=== PATIENT | female | born 1935 | race Caucasian/White ===

== ENCOUNTER 2018-04-03 13:59 | Emergency (ER) | payer MEDICARE ==
[~2018-04-03] VITALS: Ht 162.6 cm; Wt 80.0 kg
[2018-04-03 14:30] VITALS: BP 148/74; PULSE 73; RESP 16; TEMP 97.6; O2SAT 100
--- NOTE | 2018-04-03 18:19 | PD ---
HPI Chief Complaint: Depression Time Seen by Provider: 17:44 Travel History International Travel<30 days: No Contact w/Intl Traveler<30days: No Traveled to known affect area: No History of Present Illness HPI 82-year-old female presents to the emergency department accompanied by her daughter and other family member for evaluation for depression, not taking her medications, confusion, paranoia, hallucinating and other behavioral problems that have been going on for a long time, but worsening over the past 3 months. The previous visit symptoms were taken from a list of behaviors that were listed on a piece of paper by the family members. Patient has history of dementia for the past few years which has been worsening over the past few months. The patient denies suicidal or homicidal ideations. She denies auditory or visual hallucinations. Denies illicit drug use or alcohol use. The daughter is concerned because she has not been taking her medications in the last taken on Tuesday. The patient states she "hates taking medications." The patient denies any pain. Denies any emergent symptoms, such as chest pain , shortness of breath, abdominal pain, dysuria, change in stool. Patient has been evaluated by neurologist, Dr. Soto, and was referred to the ER for evaluation. Symptoms are moderate to severe in severity. No known aggravating or relieving factors. Onset unknown. Duration chronic. No known allergies. Primary care provider is Dr. Umanzor. Neurologist is Dr. Soto. History of dementia, depression, hypercholesterolemia, hypertension, cardiomegaly. Has no other medical complaints. No other modifying factors or associated signs and symptoms. PFSH Social History Alcohol Use: No Tobacco Use: No Substance Use: No Allergies-Medications (Allergen,Severity, Reaction): Coded Allergies: codeine (Verified Allergy, Severe, Tachycardia, 04/03/18) morphine (Verified Allergy, Severe, Tachycardia, 04/03/18) latex (Verified Allergy, Unknown, 04/03/18) Reported Meds & Prescriptions Reported Meds & Active Scripts Active Reported Seroquel (Quetiapine Fumarate) 50 Mg Tab 50 Mg PO DAILY Furosemide 40 Mg Tab 40 Mg PO DAILY Aricept (Donepezil) 23 Mg Tab 5 Mg PO HS Do not split, crushed or chewed. Amlodipine-Benazepril 10-20 Mg Cap 1 Cap DAILY Omeprazole 20 Mg Tab 20 Mg PO DAILY Wellbutrin Xl 24 HR (Bupropion HCl) 150 Mg Tab 150 Mg PO DAILY Review of Systems Except as stated in HPI: all other systems reviewed are Neg Physical Exam Narrative GENERAL: Well-nourished, well-developed elderly, female patient, in no acute distress SKIN: Warm and dry. HEAD: Atraumatic. Normocephalic. EYES: Pupils equal and round. ENT: Mucosa pink and moist. NECK: Supple. Trachea midline. CARDIOVASCULAR: Regular rate and rhythm. No murmur appreciated. RESPIRATORY: No accessory muscle use. Clear to auscultation. Breath sounds equal bilaterally. GASTROINTESTINAL: Abdomen soft, non-tender, nondistended. Hepatic and splenic margins not palpable. Bowel sounds are active 4 quadrants. MUSCULOSKELETAL: No obvious deformities. No clubbing. No cyanosis. No edema. BACK: No CVA tenderness. NEUROLOGICAL: Awake and alert. Oriented 4. No obvious cranial nerve deficits. Motor grossly within normal limits. Normal speech. Moves all extremities. 5/5 strength to all extremities. PSYCHIATRIC: No delusional thought processes. No hallucinations. Data Data Last Documented VS Vital Signs Date Time Temp Pulse Resp B/P (MAP) Pulse Ox O2 Delivery O2 Flow Rate FiO2 04/03/18 14:30 97.6 73 16 148/74 (98) 100 Orders Orders Complete Blood Count With Diff (04/03/18 18:06) Comprehensive Metabolic Panel (04/03/18 18:06) Thyroid Stimulating Hormone (04/03/18 18:06) Urinalysis - C+S If Indicated (04/03/18 18:06) Drug Screen, Random Urine (04/03/18 18:06) Alcohol (Ethanol) (04/03/18 18:06) Salicylates (Aspirin) (04/03/18 18:06) Tylenol (Acetaminophen) (04/03/18 18:06) Ed Discharge Order (04/03/18 20:08) Labs Laboratory Tests Test 04/03/18 18:10 04/03/18 18:20 Urine Color YELLOW Urine Turbidity CLEAR Urine pH 7.0 Urine Specific [place] 1.012 Urine Protein NEG mg/dL Urine Glucose (UA) NEG mg/dL Urine Ketones NEG mg/dL Urine Occult Blood NEG Urine Nitrite NEG Urine Bilirubin NEG Urine Urobilinogen LESS THAN 2 mg/dL Urine Leukocyte Esterase NEG Urine RBC 1 /hpf Urine WBC 1 /hpf Urine Squamous Epithelial Cells 1 /hpf Urine Mucus FEW /lpf Microscopic Urinalysis Comment CULT NOT INDICATED Urine Opiates Screen NEG Urine Barbiturates Screen NEG Urine Amphetamines Screen NEG Urine Benzodiazepines Screen NEG Urine Cocaine Screen NEG Urine Cannabinoids Screen NEG White Blood Count 4.6 TH/MM3 Red Blood Count 4.21 MIL/MM3 Hemoglobin 10.1 GM/DL Hematocrit 30.0 % Mean Corpuscular Volume 71.2 FL Mean Corpuscular Hemoglobin 23.9 PG Mean Corpuscular Hemoglobin Concent 33.6 % Red Cell Distribution Width 19.7 % Platelet Count 234 TH/MM3 Mean Platelet Volume 7.0 FL Neutrophils (%) (Auto) 64.5 % Lymphocytes (%) (Auto) 23.7 % Monocytes (%) (Auto) 7.6 % Eosinophils (%) (Auto) 3.0 % Basophils (%) (Auto) 1.2 % Neutrophils # (Auto) 3.0 TH/MM3 Lymphocytes # (Auto) 1.1 TH/MM3 Monocytes # (Auto) 0.3 TH/MM3 Eosinophils # (Auto) 0.1 TH/MM3 Basophils # (Auto) 0.1 TH/MM3 CBC Comment DIFF FINAL Differential Comment Blood Urea Nitrogen 15 MG/DL Creatinine 0.88 MG/DL Random Glucose 91 MG/DL Total Protein 7.7 GM/DL Albumin 3.7 GM/DL Calcium Level 8.3 MG/DL Alkaline Phosphatase 37 U/L Aspartate Amino Transf (AST/SGOT) 13 U/L Alanine Aminotransferase (ALT/SGPT) 19 U/L Total Bilirubin 0.4 MG/DL Sodium Level 137 MEQ/L Potassium Level 3.9 MEQ/L Chloride Level 102 MEQ/L Carbon Dioxide Level 25.6 MEQ/L Anion Gap 9 MEQ/L Estimat Glomerular Filtration Rate 61 ML/MIN Thyroid Stimulating Hormone 3rd Gen 1.440 uIU/ML Salicylates Level LESS THAN 1.7 MG/DL Acetaminophen Level LESS THAN 2.0 MCG/ML Ethyl Alcohol Level 4 MG/DL [facility] Medical Decision Making Medical Screen Exam Complete: Yes Emergency Medical Condition: Yes Medical Record Reviewed: Yes Differential Diagnosis Dementia, Alzheimer's disease, depression, medical clearance, psychological evaluation Narrative Course 82-year-old female, with history of dementia, presents with her family with concern of change in behavior over the past few months. The patient lives by herself. The daughter cares for her. The family brought a list of behaviors and a written no describing an event that occurred, showing that the patient is not safe to care for herself, or lives alone. The patient is seen by Dr. Soto and was referred to come to the ER for continued care and evaluation. Patient denies any suicidal or homicidal ideations. She is alert and oriented 4. I discussed the patient with Dr. Baker and he will talk with the family and evaluate the patient and decide patient disposition. See his note for final patient disposition. Kylah Brand DISPENSING OPTICIAN Apr 03, 2018 18:19
[2018-04-03 18:31] LABS: BASOPHIL # 0.1 TH/MM3 (0-0.2); BASOPHIL % 1.2 % (0.0-2.0); EOSINOPHIL # 0.1 TH/MM3 (0-0.4); HEMOGLOBIN 10.1 GM/DL (11.6-15.3); LYMPH % 23.7 % (9.0-44.0); LYMPHOCYTE # 1.1 TH/MM3 (1.0-4.8); MEAN CELL VOLUME 71.2 FL (80.0-100.0); MEAN CORPUSCULAR HEMOGLOBIN 23.9 PG (27.0-34.0); MEAN CORPUSCULAR HGB CONC 33.6 % (32.0-36.0); MONO % 7.6 % (0.0-8.0); MONOCYTE # 0.3 TH/MM3 (0-0.9); NEUT % 64.5 % (16.0-70.0); PLATELET COUNT 234 TH/MM3 (150-450); RED BLOOD COUNT 4.21 MIL/MM3 (4.00-5.30); RED CELL DISTRIBUTION WIDTH 19.7 % (11.6-17.2); WHITE BLOOD COUNT 4.6 TH/MM3 (4.0-11.0)
[2018-04-03 18:48] LABS: BILIRUBIN, URINE NEG (NEG); BLOOD, URINE NEG (NEG); GLUCOSE,URINE NEG (NEG); KETONE, URINE NEG (NEG); MUCUS URINE FEW /lpf (OCC); NITRITE,URINE NEG (NEG); SQUAMOUS EPITHELIAL CELL URINE 1 /hpf (0-5); URINE COLOR YELLOW (YELLW/STRAW); URINE LEUKOCYTE ESTERASE NEG (NEG)
[2018-04-03 19:09] LABS: ALBUMIN 3.7 GM/DL (3.4-5.0); ALKALINE PHOSPHATASE 37 U/L (45-117); ALT (GPT) 19 U/L (10-53); AST (GOT) 13 U/L (15-37); BICARBONATE 25.6 MEQ/L (21.0-32.0); BLOOD UREA NITROGEN 15 MG/DL (7-18); CALCIUM 8.3 MG/DL (8.5-10.1); CHLORIDE 102 MEQ/L (98-107); CREATININE 0.88 MG/DL (0.50-1.00); GLOMERULAR FILTRATION RATE 61 ML/MIN (>89); GLUCOSE,RANDOM 91 MG/DL (74-106); SODIUM (NA) 137 MEQ/L (136-145); TOTAL BILIRUBIN ADULT 0.4 MG/DL (0.2-1.0); TOTAL PROTEIN 7.7 GM/DL (6.4-8.2)
[2018-04-03 19:26] LABS: ACETAMINOPHEN LESS THAN 2.0 MCG/ML (10.0-30.0)
[2018-04-03] MEDS ORDERED: AMLO10CA (19:27)
[2018-04-03] MEDS ORDERED: OMEP20TA93 PO (19:27)
[2018-04-03] MEDS ORDERED: BUPR150XL PO (19:27)
[2018-04-03] MEDS ORDERED: ARIC23TA PO (19:27)
[2018-04-03] MEDS ORDERED: SERO50TA PO (19:27)
[2018-04-03] MEDS ORDERED: FURO40TA PO (19:27)
--- NOTE | 2018-04-03 20:08 | PD ---
Data Data Last Documented VS Vital Signs Date Time Temp Pulse Resp B/P (MAP) Pulse Ox O2 Delivery O2 Flow Rate FiO2 04/03/18 14:30 97.6 73 16 148/74 (98) 100 Orders Orders Complete Blood Count With Diff (04/03/18 18:06) Comprehensive Metabolic Panel (04/03/18 18:06) Thyroid Stimulating Hormone (04/03/18 18:06) Urinalysis - C+S If Indicated (04/03/18 18:06) Drug Screen, Random Urine (04/03/18 18:06) Alcohol (Ethanol) (04/03/18 18:06) Salicylates (Aspirin) (04/03/18 18:06) Tylenol (Acetaminophen) (04/03/18 18:06) Labs Laboratory Tests Test 04/03/18 18:10 04/03/18 18:20 Urine Color YELLOW Urine Turbidity CLEAR Urine pH 7.0 Urine Specific [place] 1.012 Urine Protein NEG mg/dL Urine Glucose (UA) NEG mg/dL Urine Ketones NEG mg/dL Urine Occult Blood NEG Urine Nitrite NEG Urine Bilirubin NEG Urine Urobilinogen LESS THAN 2 mg/dL Urine Leukocyte Esterase NEG Urine RBC 1 /hpf Urine WBC 1 /hpf Urine Squamous Epithelial Cells 1 /hpf Urine Mucus FEW /lpf Microscopic Urinalysis Comment CULT NOT INDICATED Urine Opiates Screen NEG Urine Barbiturates Screen NEG Urine Amphetamines Screen NEG Urine Benzodiazepines Screen NEG Urine Cocaine Screen NEG Urine Cannabinoids Screen NEG White Blood Count 4.6 TH/MM3 Red Blood Count 4.21 MIL/MM3 Hemoglobin 10.1 GM/DL Hematocrit 30.0 % Mean Corpuscular Volume 71.2 FL Mean Corpuscular Hemoglobin 23.9 PG Mean Corpuscular Hemoglobin Concent 33.6 % Red Cell Distribution Width 19.7 % Platelet Count 234 TH/MM3 Mean Platelet Volume 7.0 FL Neutrophils (%) (Auto) 64.5 % Lymphocytes (%) (Auto) 23.7 % Monocytes (%) (Auto) 7.6 % Eosinophils (%) (Auto) 3.0 % Basophils (%) (Auto) 1.2 % Neutrophils # (Auto) 3.0 TH/MM3 Lymphocytes # (Auto) 1.1 TH/MM3 Monocytes # (Auto) 0.3 TH/MM3 Eosinophils # (Auto) 0.1 TH/MM3 Basophils # (Auto) 0.1 TH/MM3 CBC Comment DIFF FINAL Differential Comment Blood Urea Nitrogen 15 MG/DL Creatinine 0.88 MG/DL Random Glucose 91 MG/DL Total Protein 7.7 GM/DL Albumin 3.7 GM/DL Calcium Level 8.3 MG/DL Alkaline Phosphatase 37 U/L Aspartate Amino Transf (AST/SGOT) 13 U/L Alanine Aminotransferase (ALT/SGPT) 19 U/L Total Bilirubin 0.4 MG/DL Sodium Level 137 MEQ/L Potassium Level 3.9 MEQ/L Chloride Level 102 MEQ/L Carbon Dioxide Level 25.6 MEQ/L Anion Gap 9 MEQ/L Estimat Glomerular Filtration Rate 61 ML/MIN Thyroid Stimulating Hormone 3rd Gen 1.440 uIU/ML Salicylates Level LESS THAN 1.7 MG/DL Acetaminophen Level LESS THAN 2.0 MCG/ML Ethyl Alcohol Level 4 MG/DL MDM Supervised Visit with [facility]: Yes Narrative Course The history, exam, and medical decision-making in the associated mid-level provider note were completed with my assistance. I reviewed and agree with the findings presented. I attest that I had a [id number] encounter with the patient on the same day, and personally performed and documented my assessment and findings in the medical record. *My assessment and Findings: 82-year-old woman presents emergency department brought in by family from a neurologist for change in behavior. She is a history of dementia which is been affecting her for the past several years, worsening behaviors over the past several months. Family is a list of different behaviors that they are worried about including not wanting to let people in the door sometimes, wandering sometimes, making passive statements about not wanting to be alive at times. She was seen by an SCREEN MACHINE OPERATOR at Dr. Soto's office referred to the ED for evaluation. Patient has no complaints. She is alert and oriented now but still has some memory impairment. Has some awareness of behaviors but not complete. She lives by herself. Her daughter does most of her medications. She does prepare her own food. Daughter is worried because she did not want to go to the grocery store earlier. Evaluation reveals no evidence of immediate threat to herself or others. There is no apparent reversible cause. Do not see any evidence of trauma. UA is normal. Labs are normal. Patient's likely getting to the point where she is not to be safe to live at home anymore case management came and discussed with the family also that she may benefit from being placed in an assisted living facility. I do not see any indication for hospitalization and psychiatric or medical at this point. Recommend close follow-up with her primary physician. Diagnosis Primary Impression: Dementia Additional Instruction: Follow-up with your primary physician and Dr. Soto. Consider placement in assisted living facility. Return to the emergency department for any new or worsening symptoms. Disposition: 01 DISCHARGE HOME Condition: Stable Wayne Baker MD Apr 03, 2018 20:08
== END 2018-04-03 20:38 | disposition home or self-care (01) ==
LOC: NEPD 13:59
DX: F03.90 Unspecified dementia, unspecified severity, without behavioral disturbance, psychotic disturbance, mood disturbance, and anxiety (principal); Z88.5 Allergy status to narcotic agent; Z79.899 Other long term (current) drug therapy
CPT/HCPCS: 80053; 80307; 81001; 84443; 85025; 99283